=== PATIENT | female | born 1940 | race Caucasian/White ===

== ENCOUNTER 2022-01-20 17:25 | Emergency (ER) | payer MEDICARE, OTHER ==
[~2022-01-20 17:25] MED LIST: ADALAT CC30 MG PO; ADULT ASPIRIN R81 MG PO; ASCORBIC ACID500 MG PO; ATENOLOL25 MG PO; LEVO-T88 MCG PO; NITROQUIK SL0.4 MG SL; VITAMIN B122500 MC1 PO; VITAMIN D3 PO
== END 2022-01-20 20:40 | disposition home or self-care (01) ==
LOC: FER 17:25
DX: S67.192A Crushing injury of right middle finger, initial encounter (principal); S61.212A Laceration without foreign body of right middle finger without damage to nail, initial encounter; F17.210 Nicotine dependence, cigarettes, uncomplicated; Z23 Encounter for immunization; X58.XXXA Exposure to other specified factors, initial encounter; Y92.009 Unspecified place in unspecified non-institutional (private) residence as the place of occurrence of the external cause
CPT/HCPCS: 73140; 90471; 90715; J2001

== ENCOUNTER → 2022-02-13 | Day surgery (SDC) | payer MEDICARE, OTHER ==
[~2022-02-13] VITALS: Ht 175.3 cm; Wt 56.8 kg
[~2022-02-13] MED LIST changes: +CIPRO500 MG PO; +NAPROXEN500 MG PO; +NORCO 5/3251 EACH PO; +VITAMIN D350 MC3 PO
[2022-02-13 07:54] LABS: HCT 42.2 % (37.0-47.0); HGB 14.2 g/dl (12.5-16.0); MCH 32.5 pg (25.0-31.0); MCHC 33.6 g/dL (32.0-36.0); MCV 96.6 fL (78.0-100.0); MPV 10.3 fL (6.0-9.5); RBC 4.37 M/uL (4.20-5.40); RDW 13.5 % (11.5-14.0); WBC 8.8 K/uL (4.0-10.5)
[2022-02-13 08:25] LABS: ALBUMIN 3.3 g/dL (3.4-5.0); BILIRUBIN - TOTAL 0.8 mg/dL (0.2-1.0); BUN/CREAT RATIO (CALC) 20.4 RATIO; CREATININE 1.08 mg/dL (0.51-0.95); GLOBULIN (CALCULATION) 3.9 g/dL; POTASSIUM 4.3 mmol/L (3.5-5.1); TOTAL PROTEIN 7.2 g/dL (6.4-8.2)
== END | disposition home or self-care (01) ==
LOC: FAS 06:56
PROVIDERS: Orthopaedic Surgery
DX: S52.571A Other intraarticular fracture of lower end of right radius, initial encounter for closed fracture (principal); G56.01 Carpal tunnel syndrome, right upper limb; X58.XXXA Exposure to other specified factors, initial encounter; I10 Essential (primary) hypertension; I48.91 Unspecified atrial fibrillation; Z79.82 Long term (current) use of aspirin; Z79.2 Long term (current) use of antibiotics
CPT/HCPCS: 36415; 71045; 73100; 76000; 80053; 93005; C1713; J0690; J1100; J1170; J1885; J2250; J2405; J2704; J2795; J7120